=== PATIENT | female | born 1990 | race Caucasian/White ===

== ENCOUNTER 2016-11-28 07:45 | Day surgery (SDC) | payer BC, MEDICAID ==
[2016-11-22 12:36] LABS: HEMATOCRIT 41.7 % (36.0-47.0); HEMOGLOBIN 13.7 g/dL (12.0-15.5); HGB HCT DIFFERENCE -0.6; MEAN CORPUSCULAR HEMOGLOBIN 26.3 pg (27.0-33.4); MEAN CORPUSCULAR HGB CONC 32.8 g/dL (32.0-36.0); MEAN CORPUSCULAR VOLUME 80 fl (80-97); RED BLOOD COUNT 5.21 10^6/uL (3.72-5.28); WHITE BLOOD COUNT 13.3 10^3/uL (4.0-10.5)
[2016-11-22 12:43] LABS: APPEARANCE,URINE CLOUDY; BILIRUBIN,URINE NEGATIVE (NEGATIVE); GLUCOSE, URINE NEGATIVE (NEGATIVE); KETONES,URINE NEGATIVE (NEGATIVE); LEUKOCYTE ESTERASE,URINE MODERATE (NEGATIVE); NITRITE,URINE NEGATIVE (NEGATIVE); PROTEIN,URINE NEGATIVE (NEGATIVE); URINE SPECIFIC GRAVITY 1.024; UROBILINOGEN,URINE NEGATIVE mg/dL (<2.0)
[~2016-11-28 07:45] MED LIST: RINGERS SOLUTION,LACTATED 1,000 ML IV PRN
[2016-11-28] MEDS ORDERED: MIDAZOLAM 2 MG/2 ML INJ ONE (08:19)
[2016-11-28] MEDS ORDERED: PROPOFOL INJ 200 MG/20 ML VIAL IV ONE (08:20)
[2016-11-28] MEDS ORDERED: HYDROMORPHONE HCL INJ/PF 2 MG/ML AMPULE ONE (08:20)
[2016-11-28] MEDS ORDERED: BUPIVACAINE HCL 0.25 % INJ/PF (2.5 MG/1 ML) 30 ML VIAL ONE (08:21)
[2016-11-28] MEDS ORDERED: CEFAZOLIN INJ 1 GM VIAL ONE (08:59)
[2016-11-28] MEDS ORDERED: PROMETHAZINE HCL INJ 25 MG/1 ML VIAL IV PRN ×2 (09:09)
[2016-11-28] MEDS ORDERED: DIPHENHYDRAMINE HCL 50 MG/ML VIAL IV PRN (09:09)
[2016-11-28] MEDS ORDERED: MORPHINE SULFATE 10 MG/ML INJ IV PRN (09:09)
[2016-11-28] MEDS ORDERED: FENTANYL CITRATE INJ/PF 100 MCG/2 ML AMPUL IV PRN ×3 (09:09)
[2016-11-28] MEDS ORDERED: MEPERIDINE HCL/PF INJ 25 MG/1 ML DISP.SYRIN IV PRN (09:09)
[2016-11-28] MEDS ORDERED: OXYCODONE-ACETAMINOPHEN 5-325 MG TABLET PO PRN ×2 (09:09)
[2016-11-28] MEDS: FENTANYL CITRATE INJ/PF 100 MCG/2 ML AMPUL ONE ×2 (09:45→10:00)
[2016-11-28] MEDS: LORAZEPAM INJ 2 MG/1 ML VIAL ONE ×2 (09:50→10:05)
[2016-11-28] MEDS ORDERED: LORAZEPAM INJ 2 MG/1 ML VIAL IV ONE (09:50)
[2016-11-28] MEDS ORDERED: ONDANSETRON HCL INJ/PF 4 MG/2 ML SDV ONE ×2 (11:05→14:11)
[2016-11-28] MEDS ORDERED: IBUPROFEN 800 MG TABLET ONE (13:15)
[2016-11-28] MEDS ORDERED: GLYCOPYRROLATE INJ 0.4 MG/2 ML VIAL ONE (14:11)
[2016-11-28] MEDS ORDERED: DEXAMETHASONE SOD PHOSPHATE INJ 4 MG/1 ML VIAL ONE (14:11)
[2016-11-28] MEDS ORDERED: LIDOCAINE 2% INJ-PF (20 MG/ML) 10 ML AMPUL ONE (14:11)
[2016-11-28] MEDS ORDERED: NEOSTIGMINE METHYLSULFATE 10 MG/10 ML VIAL ONE (14:11)
[2016-11-28 14:57] VITALS: BP 110/65
--- NOTE | 2017-01-07 08:45 | OPERATIVE REPORT E ---
Operative Report NAME: OUSMANE LOBATO : 1990 AGE: 26Y DATE OF SURGERY: 11/28/2016 ROOM: PREOPERATIVE DIAGNOSES: 1. Patient desiring sterilization. 2. Patient desiring her Nexplanon to be removed. POSTOPERATIVE DIAGNOSES: 1. Patient desiring sterilization. 2. Patient desiring her Nexplanon to be removed. PROCEDURE: 1. Laparoscopic bilateral partial salpingectomy. 2. Attempted removal of Nexplanon. SURGEON: Petar Rodríguez D.O. AUDIO INSTALLER: None. ANESTHESIA: General endotracheal anesthesia. COMPLICATIONS: None. PATHOLOGY: None. ESTIMATED BLOOD LOSS: Less than 25 mL. FINDINGS: 1. Normal pelvic anatomy. 2. Nexplanon in left upper arm to a depth of approximately 2 cm via fluoroscopy. PROCEDURE: Patient was taken to the operating room where she was placed in the dorsal supine position upon the operating table. She was then administered her general endotracheal anesthesia. Once this was done, she was placed in dorsal lithotomy position with Zane stirrups. She was then prepped and draped in normal sterile fashion. An open-sided speculum was then placed inside the patient's vagina. The cervix was easily visualized and grasped on the anterior lip with a single-toothed tenaculum. The uterus was then sounded to 7 cm. The uterine manipulator was then placed to this depth without difficulty. Single-toothed tenaculum and open-sided speculum were then removed from the patient's vagina. The surgeon then changed gloves. A 5 mm incision was made at the base of the patient's umbilicus where a 5 mm direct Optiview scope was passed through this incision in the peritoneal cavity. Once inside the peritoneal cavity, CO2 gas was turned on and opening pressures were noted less than 5. Patient's abdomen was then allowed to fill with CO2 gas. Two 5 mm ports were then placed in the left lower quadrant with direct visualization without evidence of trauma or injury. Using the LigaSure device, a bilateral salpingectomy was performed with excellent hemostasis. The tubal portions were pulled through the port and removed in their entirety. Following this, CO2 gas was removed from the patient's abdomen. Pressures were taken down to less than 5 and there was excellent hemostasis at the pedicle sites. At this point in time, all ports, instruments, and gas were removed from the patient's abdomen. The skin incisions were then closed with Dermabond. Attention was then turned to the left upper arm where the Nexplanon had been inserted by another physician. It was unable to be palpated, so fluoroscopy came in and was located using fluoroscopic guidance and found to be approximately 2 cm deep. This is too deep for my comfort and so the patient will be referred to General Surgery for removal. At this point in time the procedure was terminated. All sponge, lap, and needle counts were correct x2. Patient tolerated the procedure well. Patient was taken to the recovery room in stable condition. DICTATING PHYSICIAN: Petar Rodríguez DO [id number] PHY#: [id number] ID: [id number] JOB#: [id number] ACCT: [id number] cc:Petar Rodríguez D.O. >
== END 2016-11-28 14:15 | disposition home or self-care (01) ==
LOC: OROUT 07:45 → EDSTATUS 11:15 → OROUT 14:15
PROVIDERS: ATTEND Obstetrics & Gynecology
PROC: 0UT74ZZ Resection of Bilateral Fallopian Tubes, Percutaneous Endoscopic Approach (ICD-10-PCS; 2016-11-28)
PROC: 0JPV0HZ Removal of Contraceptive Device from Upper Extremity Subcutaneous Tissue and Fascia, Open Approach (ICD-10-PCS; principal; 2016-11-28 09:45)
DX: Z30.2 Encounter for sterilization (principal); F17.210 Nicotine dependence, cigarettes, uncomplicated; E66.9 Obesity, unspecified; Z68.42 Body mass index [BMI] 45.0-49.9, adult; Z88.1 Allergy status to other antibiotic agents; Z30.49 Encounter for surveillance of other contraceptives
CPT/HCPCS: 11982; 58661; 36415; 85027; 81005; 81025; 88302 ×2; J2250; J0690; J1100; J3010; J1170; J2060; J2405; J2704; J3490; 840

== ENCOUNTER → 2016-12-17 | Outpatient (CLI) | payer BC, MEDICAID ==
--- NOTE | 2016-12-17 14:41 | RADIOLOGY REPORT (SQ) ---
EXAM DESCRIPTION: HUMERUS LEFT COMPLETED DATE/TIME: 12/17/2016 2:31 pm REASON FOR STUDY: LOOK FOR CONTROL IMPLANT. SUPERFICIAL FOREIGN BODY OF LEFT UPPER ARM, S40.85 2A SUPERFICIAL FOREIGN BODY OF LEFT UPPER ARM, INIT EN COMPARISON: None. NUMBER OF VIEWS: Two views. TECHNIQUE: Two radiographic images were acquired of the left humerus to include elbow and shoulder i n at least one projection. LIMITATIONS: None. FINDINGS: MINERALIZATION: Normal. BONES: No acute fracture or dislocation. No worrisome bone lesions. SOFT TISSUES: No obvious swelling or foreign body. OTHER: There are 2 linear foreign bodies within the [id number] at the level of the mid humerus. IMPRESSION: 2 linear foreign bodies are visible. TECHNICAL DOCUMENTATION: JOB ID: [id number] [employer]- All Rights Reserved
== END ==
LOC: RAD 13:57
PROVIDERS: ATTEND Surgery
DX: S40.852A Superficial foreign body of left upper arm, initial encounter (principal); X58.XXXA Exposure to other specified factors, initial encounter

== ENCOUNTER → 2016-12-23 | Outpatient (CLI) | payer BC, MEDICAID | LOC: WI 13:49 | PROVIDERS: ATTEND Internal Medicine | DX: N64.9 Disorder of breast, unspecified (principal) ==

== ENCOUNTER 2017-01-07 14:50 | Day surgery (SDC) | payer BC, MEDICAID ==
[~2017-01-07 14:50] MED LIST changes: +CEFAZOLIN 1 GM/D5W RTU 1 GM/50 ML RTUPB IV PRN; +LACTATED RINGERS 1000 ML IV PRN; +LIDOCAINE 0.5% INJ-PF (5 MG/ML) 50 ML SDV SUBCUT PRN; +LIDOCAINE 2% INJ-PF (20 MG/ML) 10 ML AMPUL ONE; -RINGERS SOLUTION,LACTATED 1,000 ML IV PRN
[2017-01-07] MEDS ORDERED: PROPOFOL INJ 200 MG/20 ML VIAL IV ONE ×2 (18:45→19:26)
[2017-01-07] MEDS ORDERED: MIDAZOLAM 2 MG/2 ML INJ ONE (18:45)
[2017-01-07] MEDS ORDERED: FENTANYL CITRATE INJ/PF 100 MCG/2 ML AMPUL ONE (18:45)
[2017-01-07] MEDS ORDERED: BUPIVACAINE HCL 0.25 % INJ/PF (2.5 MG/1 ML) 30 ML VIAL ONE (18:54)
[2017-01-07] MEDS ORDERED: KETAMINE HCL INJ 500 MG/10 ML VIAL ONE (19:05)
[2017-01-07] MEDS ORDERED: BUPIVACAINE HCL 0.25 % INJ/PF (2.5 MG/1 ML) 30 ML VIAL INJ ONE (19:39)
[2017-01-07] MEDS ORDERED: PROMETHAZINE HCL INJ 25 MG/1 ML VIAL IV PRN (19:42)
[2017-01-07] MEDS ORDERED: DIPHENHYDRAMINE HCL 50 MG/ML VIAL IV PRN (19:42)
[2017-01-07] MEDS ORDERED: FENTANYL CITRATE INJ/PF 100 MCG/2 ML AMPUL IV PRN ×2 (19:42)
[2017-01-07] MEDS ORDERED: RINGERS SOLUTION,LACTATED 1,000 ML IV PRN (19:56)
[2017-01-07] MEDS ORDERED: OXYCODONE-ACETAMINOPHEN 5-325 MG TABLET PO PRN (19:56)
[2017-01-07] MEDS ORDERED: ONDANSETRON HCL INJ/PF 4 MG/2 ML SDV IV PRN (19:56)
--- NOTE | 2017-01-07 19:56 | PDOC DISCHARGE SUMMARY ---
Discharge Summary (SDC) - Discharge Final Diagnosis: Retained foreign body in the left upper arm Date of Surgery: 01/07/17 Discharge Date: 01/07/17 Condition: Good Treatment or Instructions: Underwent fluoroscopically guided foreign body removal from the left upper arm. May discharge patient home when met discharge criteria. Follow-up with me in 2-3 weeks. Stay active but avoid strenuous activity. May shower in 2 days. Keep Steri-Strips on. Prescriptions: Oxycodone HCl/Acetaminophen [Percocet 5-325 mg Tablet] 1 - 2 tab PO ASDIR PRN # 15 tablet PRN Reason: Referrals: SATISH NOBLES MD [Primary Care Provider] - Discharge Diet: As Tolerated Discharge Activity: Activity As Tolerated - Stay active but avoid strenuous activity. Keep Steri-Strips on. May shower in 2 days. Report the Following to Your Physician Immediately: Fever over 101 Degrees, Unusual Bleeding, Redness, Drainage-Foul Smelling
--- NOTE | 2017-01-07 19:56 | Operative Report ---
Operative Report DATE OF SURGERY: 01/07/17 PREOPERATIVE DIAGNOSIS: Retained foreign body in the left upper arm POSTOPERATIVE DIAGNOSIS: Retained foreign body in the left upper arm OPERATION: Foreign body removal from the left upper arm under fluoroscopic guidance SURGEON: ARRON MILES ANESTHESIA: LMAC TISSUE REMOVED OR ALTERED: control device removed from the left upper arm COMPLICATIONS: None ESTIMATED BLOOD LOSS: Minimal INTRAOPERATIVE FINDINGS: Tubular linear device located in the left upper arm consistent with control device. Device in the subcutaneous fat. PROCEDURE: Informed consent was obtained. Patient was brought to the operating room. She was placed on the operating room table in the supine position. Procedure was done under LMAC. Her left upper arm was prepped and draped in usual sterile fashion. Fluoroscopy was performed it demonstrated a linear foreign body in the left upper arm at the medial location. Local anesthetic was injected. Using fluoroscopy as a guide a longitudinally oriented incision was made. Dissection was carried down into the subcutaneous fat where the linear tubular foreign body was identified it was removed intact. Hemostasis appeared excellent. Fluoroscopy after foreign body removal demonstrated in the that the radiopaque foreign body was removed. The wound was closed with running subcuticular Monocryl suture.
--- NOTE | 2017-01-07 20:05 | RADIOLOGY REPORT (SQ) ---
EXAM DESCRIPTION: HUMERUS LEFT COMPLETED DATE/TIME: 01/07/2017 7:54 pm REASON FOR STUDY: FB REMOVAL S40.852A SUPERFICIAL FOREIGN BODY OF LEFT UPPER ARM, INIT EN COMPARISON: 12/17/2016 FLUOROSCOPY TIME: 0.5 minutes Spot images saved to PACS. TECHNIQUE: Intra-operative images acquired during surgical procedure to evaluate progress. NUMBER OF IMAGES: 2 LIMITATIONS: None. FINDINGS: Fluoroscopy was provided for intraoperative procedure. Please refer to the operative repo rt for further discussion pair IMPRESSION: IMAGE(S) OBTAINED DURING PROCEDURE. COMMENT: Quality ID [id number]: Final reports for procedures using fluoroscopy that document radiation exp osure indices, or exposure time and number of fluorographic images (if radiation exposure indices are not available) Please consult full operative report of the attending physician for description of the procedure. TECHNICAL DOCUMENTATION: JOB ID: [id number] [email or web address]- All Rights Reserved
--- NOTE | 2017-01-07 20:06 | RADIOLOGY REPORT (SQ) ---
EXAM DESCRIPTION: NO CHG FLUORO COMPLETE DATE/TIME: 01/07/2017 7:54 pm REASON FOR STUDY: FB REMOVAL S40.852A SUPERFICIAL FOREIGN BODY OF LEFT UPPER ARM, INIT EN FINDINGS: Please see combined report for performance of procedure and radiologic supervision and int erpretation. IMPRESSION: Please see combined report for performance of procedure and radiologic supervision and i nterpretation.
[2017-01-07 21:03] VITALS: BP 134/89
== END 2017-01-07 21:46 | disposition home or self-care (01) ==
LOC: OROUT 14:50 → 2N 14:50 → OROUT 21:46
PROVIDERS: ATTEND Surgery
PROC: 0JPV0HZ Removal of Contraceptive Device from Upper Extremity Subcutaneous Tissue and Fascia, Open Approach (ICD-10-PCS; principal; 2017-01-07 17:00)
DX: S40.852A Superficial foreign body of left upper arm, initial encounter (principal); X58.XXXA Exposure to other specified factors, initial encounter; F17.210 Nicotine dependence, cigarettes, uncomplicated; Z68.42 Body mass index [BMI] 45.0-49.9, adult; E66.9 Obesity, unspecified; Z30.49 Encounter for surveillance of other contraceptives; Z88.1 Allergy status to other antibiotic agents
CPT/HCPCS: 81025; 88300 ×2; 73060; 11982; J2250; J0690; J3010; J3490 ×2; J2704; 00400

== ENCOUNTER 2017-04-29 19:27 | Emergency (ER) | payer BC, MEDICAID ==
--- NOTE | 2017-04-29 19:58 | ER Document Report ---
ED Medical Screen (RME) - General Chief Complaint: Fall Stated Complaint: FALL/RIGHT LEG PAIN Time Seen by Provider: 04/29/17 19:56 Notes: misstepped in the dark injuring right lower leg. Hx right ankle fx, last fx two months ago. c/o pain, and unable to bear weight on ankle. I have greeted and performed a rapid initial assessment of this patient. A comprehensive ED assessment and evaluation of the patient, analysis of test results and completion of the medical decision making process will be conducted by additional ED providers. TRAVEL OUTSIDE OF THE [place] IN LAST 30 DAYS: No - Related Data Allergies/Adverse Reactions: levofloxacin [From Levaquin] Allergy (Severe, Verified 04/29/17 14:44) severe psychosis cat dander Allergy (Unknown, Verified 04/29/17 14:44) cinnamon Allergy (Verified 04/29/17 14:44) Swelling of tongue nickel Allergy (Verified 04/29/17 14:44) Generalized rash Past Medical History - Past Medical History Cardiac Medical History: Denies: Hx Coronary Artery Disease, Hx Heart Attack, Hx Hypertension, Hx Pulmonary Embolism Pulmonary Medical History: Reports: Hx Bronchitis - YEARLY , Hx Pneumonia - WALKING Denies: Hx Asthma, Hx COPD, Hx Sleep Apnea, Hx Tuberculosis Neurological Medical History: Denies: Hx Cerebrovascular Accident, Hx Seizures Renal/ Medical History: Reports: Hx Kidney Stones - DURING , Hx Ovarian Cysts. Denies: Hx Pelvic Inflammatory Disease Malignancy Medical History: Denies: Hx Breast Cancer, Hx Cervical Cancer, Hx Ovarian Cancer Musculoskeltal Medical History: Reports Hx Arthritis - NECK Psychiatric Medical History: Denies: Hx Bipolar Disorder, Hx Depression, Hx Post Traumatic Stress Disorder , Hx Schizophrenia Traumatic Medical History: Reports: Hx Fractures - MULTIPLE BONE FX, CRUSHED VERTEBRAE IN NECK Infectious Medical History: Denies: Hx HIV Past Surgical History: Reports: Hx Section, Hx Tonsillectomy - Immunizations Hx Diphtheria, Pertussis, Tetanus Vaccination: Yes - unsure History of Influenza Vaccine for 02/2017 - 07/2017 Season: No
[2017-04-29] MEDS ORDERED: ACETAMINOPHEN 325 MG TABLET PO ONE (19:59)
--- NOTE | 2017-04-29 20:26 | RADIOLOGY REPORT (SQ) ---
EXAM DESCRIPTION: ANKLE RIGHT COMPLETE COMPLETED DATE/TIME: 04/29/2017 8:14 pm REASON FOR STUDY: injury COMPARISON: 09/25/2012. NUMBER OF VIEWS: Three views. TECHNIQUE: AP, lateral, and oblique radiographic images acquired of the right ankle. LIMITATIONS: None. FINDINGS: MINERALIZATION: Normal. BONES: No acute fracture or dislocation. No worrisome bone lesions. JOINTS: No effusions. SOFT TISSUES: No soft tissue swelling. No foreign body. OTHER: No other significant finding. IMPRESSION: NEGATIVE STUDY OF THE RIGHT ANKLE. NO RADIOGRAPHIC EVIDENCE OF ACUTE INJURY. TECHNICAL DOCUMENTATION: JOB ID: [id number] [employer]- All Rights Reserved
--- NOTE | 2017-04-29 22:38 | ER Document Report ---
ED Fall - General Chief Complaint: Fall Stated Complaint: FALL/RIGHT LEG PAIN Time Seen by Provider: 04/29/17 19:56 Mode of Arrival: Wheelchair Information source: Patient, Emergency Med Personnel, [facility] Records Notes: Patient is a 26-year-old morbidly obese white female comes emergency room complaining of a trip and fall at home. Patient states that she cut her feet tangled up and as she was coming down or going up steps and as she did she fell forward landing on her right johnson. Patient had difficulty moving her foot at the onset of the injury and EMS was called with a put her in a immobilized lower extremity and brought her to ER. Patient's been waiting here for quite some time waiting for x-rays to come back. She denies any other known injuries. TRAVEL OUTSIDE OF THE [place] IN LAST 30 DAYS: No - HPI Patient complains to provider of: Right johnson pain Occurred: Just prior to arrival Where: Home Context: Tripped Associated symptoms: denies: None, Lost consciousness, Dazed/confused, Seizure, Difficulty breathing, Difficulty walking, Became dizzy/fainted, Blood in stool, Other Location of injury/pain: Lower extremity Quality of pain: Sharp, Throbbing Severity: Moderate Pain Level: 3 Prehospital interventions: Other - Prefab lower posterior splint right side - Related data Allergies/Adverse Reactions: levofloxacin [From Levaquin] Allergy (Severe, Verified 04/29/17 14:44) severe psychosis cat dander Allergy (Unknown, Verified 04/29/17 14:44) cinnamon Allergy (Verified 04/29/17 14:44) Swelling of tongue nickel Allergy (Verified 04/29/17 14:44) Generalized rash Past Medical History - General Information source: Patient, Relative - Social History Smoking Status: Current Some Day Smoker Cigarette use (# per day): Yes - 1 pack a day Chew tobacco use (# tins/day): No Smoking Education Provided: Yes Frequency of alcohol use: None Drug Abuse: None Family History: Reviewed & Not Pertinent Patient has suicidal ideation: No Patient has homicidal ideation: No - Past Medical History Cardiac Medical History: Denies: Hx Coronary Artery Disease, Hx Heart Attack, Hx Hypertension, Hx Pulmonary Embolism Pulmonary Medical History: Reports: Hx Bronchitis - YEARLY , Hx Pneumonia - WALKING Denies: Hx Asthma, Hx COPD, Hx Sleep Apnea, Hx Tuberculosis Neurological Medical History: Denies: Hx Cerebrovascular Accident, Hx Seizures Renal/ Medical History: Reports: Hx Kidney Stones - DURING , Hx Ovarian Cysts. Denies: Hx Peritoneal Dialysis, Hx Pelvic Inflammatory Disease Malignancy Medical History: Denies: Hx Breast Cancer, Hx Cervical Cancer, Hx Ovarian Cancer Musculoskeltal Medical History: Reports Hx Arthritis - NECK Psychiatric Medical History: Denies: Hx Bipolar Disorder, Hx Depression, Hx Post Traumatic Stress Disorder , Hx Schizophrenia Traumatic Medical History: Reports: Hx Fractures - MULTIPLE BONE FX, CRUSHED VERTEBRAE IN NECK Infectious Medical History: Denies: Hx HIV Past Surgical History: Reports: Hx Section, Hx Tonsillectomy - Immunizations Hx Diphtheria, Pertussis, Tetanus Vaccination: Yes - unsure Hx Pneumococcal Vaccination: 01/18/13 Review of Systems - Review of Systems Constitutional: No symptoms reported EENT: No symptoms reported Cardiovascular: No symptoms reported Respiratory: No symptoms reported Gastrointestinal: No symptoms reported Genitourinary: No symptoms reported Female Genitourinary: No symptoms reported Musculoskeletal: Muscle pain, Leg swelling Skin: Other - Abrasion to right lower anterior leg Hematologic/Lymphatic: No symptoms reported Neurological/Psychological: No symptoms reported -: Yes All other systems reviewed and negative Physical Exam - HEENT Head: Normocephalic, Atraumatic - Respiratory Respiratory status: No respiratory distress Chest status: Nontender Breath sounds: Normal - Cardiovascular Heart sounds: Normal auscultation Murmur: No - Extremities General upper extremity: Normal inspection, Normal ROM Calf: Tender, Other - Examination patient's injury shows it to be around the distal tib-fib anteriorly. On lower leg. There is a abrasion this probably about 8 cm cross where she landed kneeling down on the step. There is just broken skin but there is no blood. Mild discoloration minimal ecchymosis noted. There is moderate amount of tenderness to palpation throughout that entire area but patient has full range of motion of her ankle and foot on the right side. Also examination of the knee shows it to be normal in appearance full range of motion with flexion extension good popliteal pulse besides that. She also has good dorsalis pedal pulses bilaterally. Course - Diagnostic Test Radiology reviewed: Reports reviewed - X-ray report on the right lower extremity shows no acute findings. Specifically no fractures. - Transfer of Care Notes: 04/29/17 22:39 Examination shows patient just have a abrasion contusion to her right lower extremity. I am going to Clement wrap and prior crutches for stability sake. Little pain medication ice to the area and discussed all this with patient and she is want to follow the plan for treating the gingerly for a couple of days. She will return to ER if she has a concerns or problems. Procedures - Immobilization Right Leg Immobilizer type: Clement wrap Performed by: mower sharpener - Discharge Clinical Impression: Contusion, lower leg Qualifiers: Encounter type: initial encounter Laterality: right Qualified Code(s): S80.11XA - Contusion of right lower leg, initial encounter Condition: Good Disposition: HOME, SELF-CARE Instructions: Contusion ([facility]) Additional Instructions: Use the clement wrap around her leg for comfort only. Do not sleep with the Clement wrap in place take it off. Apply it only when you are going to be ambulatory. Use the crutches for 2-3 days for minimal weight bearing. Ice to the area 3 times a day. Medications prescribed ibuprofen will help with discomfort and pain. Should he have increasing pain or discomfort return to ER for recheck. As I informed you the area will turn black and blue over a course of days and this will also by gravity going to the foot and possibly toes this is a normal process. Prescriptions: Tramadol HCl 50 mg PO TID PRN #20 tablet PRN Reason: Forms: Elevated Blood Pressure, Smoking Cessation Education Referrals: GERTRUDE RIVERA MD [Primary Care Provider] - Follow up as needed
[2017-04-29] MEDS ORDERED: HYDROCODONE/ACETAMINOPHEN 5-325 MG TABLET PO ONE (22:43)
[2017-04-29 22:45] VITALS: BP 129/89
== END 2017-04-29 23:00 | disposition home or self-care (01) ==
LOC: ER 19:27
DX: S80.11XA Contusion of right lower leg, initial encounter (principal); M79.604 Pain in right leg; W18.30XA Fall on same level, unspecified, initial encounter; Y92.009 Unspecified place in unspecified non-institutional (private) residence as the place of occurrence of the external cause; F17.210 Nicotine dependence, cigarettes, uncomplicated
CPT/HCPCS: 99283

== ENCOUNTER 2017-05-09 06:42 | Day surgery (SDC) | payer BC, MEDICAID ==
[2017-05-09] MEDS ORDERED: PROPOFOL INJ 200 MG/20 ML VIAL IV ONE (09:43)
[2017-05-09] MEDS ORDERED: DIPHENHYDRAMINE HCL 50 MG/ML VIAL IV PRN (10:01)
[2017-05-09] MEDS ORDERED: ONDANSETRON HCL INJ/PF 4 MG/2 ML SDV IV PRN (10:01)
[2017-05-09 10:57] VITALS: BP 130/82
--- NOTE | 2017-05-09 12:42 | Operative Report ---
Operative Report DATE OF SURGERY: 05/09/17 Operative Report: The risks, benefits and alternatives of the procedure including risks of bleeding, perforation requiring surgery are explained to the patient in detail and informed consent is obtained. Patient was taken back to the operating room and placed in the left, lateral decubital position. Timeout was called. Propofol medications administered. A rectal examination is done which did not reveal any masses, tears or fissures. An Olympus videoscope was inserted into the patient's rectum. The scope was then carefully advanced all the way to the cecum. The cecum was identified by the usual anatomical landmarks including the ileocecal valve as well as the appendiceal office. Photodocumentation is obtained. No granulomatous disease is noted in the colon. The scope was then sequentially pulled back via the rest segments of the colon including the ascending colon, hepatic flexure, transverse colon, splenic flexure, descending colon finding the rectosigmoid portions of the colon. Retroflexion maneuvers performed. The risks benefits and alternatives of the procedure explained to the patient in detail and informed consent is obtained.A GIF Olympus video scope was inserted into the patient's mouth and hypopharynx, the esophagus is identified intubated and insufflated, the scope was then advanced through the esophagus stomach and duodenum, retroflexion maneuver is done, the esophagus stomach and first and second portions of the duodenum examined PREOPERATIVE DIAGNOSIS: Change in bowel habits. Nausea and vomiting POSTOPERATIVE DIAGNOSIS: Gastritis status post biopsy rule out Helicobacter pylori. Mild right-sided colon inflammation status post biopsy rule out microscopic colitis. Internal hemorrhoids OPERATION: Colonoscopy with biopsy. EGD with biopsy SURGEON: JIGAR GUTIÉRREZ ANESTHESIA: LMAC TISSUE REMOVED OR ALTERED: As noted above. COMPLICATIONS: None. ESTIMATED BLOOD LOSS: None. INTRAOPERATIVE FINDINGS: As noted above. PROCEDURE: Patient tolerated the procedure well. No immediate postprocedure complications are noted. Patient discharged in good condition. Discharge date 05/09/2017. Discharge diet: Regular. Discharge activity: Regular. 2-3 week follow-up to discuss findings. Patient is instructed to call the office in a proceed to the emergency room should there be any further problems or questions. We will wait on pathology.
== END 2017-05-09 11:09 | disposition home or self-care (01) ==
LOC: OROUT 06:42
PROVIDERS: ATTEND Internal Medicine Gastroenterology
PROC: 0DB68ZX Excision of Stomach, Via Natural or Artificial Opening Endoscopic, Diagnostic (ICD-10-PCS; principal; 2017-05-09 08:30)
PROC: 0DBF8ZX Excision of Right Large Intestine, Via Natural or Artificial Opening Endoscopic, Diagnostic (ICD-10-PCS; 2017-05-09 08:30)
DX: K31.9 Disease of stomach and duodenum, unspecified (principal); K52.9 Noninfective gastroenteritis and colitis, unspecified; F17.210 Nicotine dependence, cigarettes, uncomplicated; K64.8 Other hemorrhoids
CPT/HCPCS: 43239; 45380; 81025; 88342 ×2; 88305 ×2; J2704; 810

== ENCOUNTER 2017-06-04 08:39 | Day surgery (SDC) | payer BC, MEDICAID ==
[2017-05-26 11:31] LABS: APPEARANCE,URINE CLOUDY; BILIRUBIN,URINE NEGATIVE (NEGATIVE); COLOR,URINE YELLOW; GLUCOSE, URINE NEGATIVE (NEGATIVE); KETONES,URINE NEGATIVE (NEGATIVE); LEUKOCYTE ESTERASE,URINE NEGATIVE (NEGATIVE); NITRITE,URINE NEGATIVE (NEGATIVE); PROTEIN,URINE NEGATIVE (NEGATIVE); URINE SPECIFIC GRAVITY 1.024; UROBILINOGEN,URINE NEGATIVE mg/dL (<2.0)
[2017-05-26 11:45] LABS: HEMATOCRIT 40.8 % (36.0-47.0); HEMOGLOBIN 13.5 g/dL (12.0-15.5); MEAN CORPUSCULAR HEMOGLOBIN 26.2 pg (27.0-33.4); MEAN CORPUSCULAR VOLUME 79 fl (80-97); PLATELET COUNT 299 10^3/uL (150-450); RED BLOOD COUNT 5.13 10^6/uL (3.72-5.28)
[2017-05-26 13:03] LABS: ANION GAP 13 (5-19); BLOOD UREA NITROGEN 11 mg/dL (7-20); CALCIUM 9.8 mg/dL (8.4-10.2); CARBON DIOXIDE 27 mmol/L (22-30); CHLORIDE 101 mmol/L (98-107); GLUCOSE 92 mg/dL (75-110); POTASSIUM 4.2 mmol/L (3.6-5.0); SODIUM 141.1 mmol/L (137-145)
[~2017-06-04 08:39] MED LIST changes: -CEFAZOLIN 1 GM/D5W RTU 1 GM/50 ML RTUPB IV PRN; -LIDOCAINE 2% INJ-PF (20 MG/ML) 10 ML AMPUL ONE
[2017-06-04] MEDS ORDERED: FENTANYL CITRATE INJ/PF 100 MCG/2 ML AMPUL ONE (09:51)
[2017-06-04] MEDS ORDERED: MIDAZOLAM 2 MG/2 ML INJ ONE (09:51)
[2017-06-04] MEDS ORDERED: PROPOFOL INJ 200 MG/20 ML VIAL IV ONE (09:52)
--- NOTE | 2017-06-04 10:33 | Operative Report ---
Operative Report DATE OF SURGERY: 06/04/17 PREOPERATIVE DIAGNOSIS: Heavy menses POSTOPERATIVE DIAGNOSIS: Same OPERATION: D&C hysteroscopy NovaSure ablation SURGEON: FANNY WAYNE ANESTHESIA: GA TISSUE REMOVED OR ALTERED: Uterine lining COMPLICATIONS: None ESTIMATED BLOOD LOSS: 10 cc INTRAOPERATIVE FINDINGS: Uterine cavity is 5 cm in length 4 1/2 cm in width PROCEDURE: Patient was taken the OR and placed in supine position. General anesthesia was induced. She is placed in dorsolithotomy position using Zane stirrups. Her perineum and vagina were prepared and draped in sterile fashion. Her bladder was drained with a red rubber catheter. A weighted speculum was placed in the anterior lip cervix grasped with a tenaculum. The uterus was sounded to 7 cm before and after the case. The cervix was gently dilated hysteroscopy was performed and showed a empty uterine cavity. Endometrial curettings were obtained. NovaSure device was placed tested and fired without difficulty. At the end of the case all instruments were removed. The uterine cavity showed good ablation and sounded to 7 cm at the end of the case. She is extubated in the OR and taken recovery in stable condition
[2017-06-04] MEDS ORDERED: LORAZEPAM INJ 2 MG/1 ML VIAL ONE (10:38)
[2017-06-04] MEDS ORDERED: PROMETHAZINE HCL INJ 25 MG/1 ML VIAL IV PRN ×2 (10:43)
[2017-06-04] MEDS ORDERED: MORPHINE SULFATE 10 MG/ML INJ IV PRN (10:43)
[2017-06-04] MEDS ORDERED: OXYCODONE-ACETAMINOPHEN 5-325 MG TABLET PO PRN ×4 (10:43→12:31)
[2017-06-04] MEDS ORDERED: FENTANYL CITRATE INJ/PF 100 MCG/2 ML AMPUL IV PRN ×3 (10:43)
[2017-06-04] MEDS ORDERED: MEPERIDINE HCL/PF INJ 25 MG/1 ML DISP.SYRIN IV PRN (10:43)
[2017-06-04] MEDS ORDERED: DIPHENHYDRAMINE HCL 50 MG/ML VIAL IV PRN (10:43)
[2017-06-04] MEDS ORDERED: LORAZEPAM INJ 2 MG/1 ML VIAL IV ONE (10:44)
[2017-06-04] MEDS ORDERED: DEXAMETHASONE SOD PHOSPHATE INJ 4 MG/1 ML VIAL ONE (10:49)
[2017-06-04] MEDS ORDERED: KETOROLAC TROMETHAMINE INJ/PF 30 MG/1 ML SDV ONE (10:49)
[2017-06-04] MEDS ORDERED: ONDANSETRON HCL INJ/PF 4 MG/2 ML SDV ONE (10:49)
[2017-06-04] MEDS ORDERED: ACETAMINOPHEN 100 ML IV ONE (11:07)
[2017-06-04] MEDS ORDERED: OXYCODONE-ACETAMINOPHEN 5-325 MG TABLET ONE (11:36)
[2017-06-04] MEDS ORDERED: IBUPROFEN 800 MG TABLET PO PRN (12:30)
[2017-06-04 13:53] VITALS: BP 160/88
[2017-06-04] MEDS ORDERED: SUCCINYLCHOLINE CHLORIDE INJ 200 MG/10 ML VIAL ONE (14:41)
== END 2017-06-04 13:20 | disposition home or self-care (01) ==
LOC: OROUT 08:39
PROVIDERS: ATTEND Obstetrics & Gynecology
PROC: 0U5B8ZZ Destruction of Endometrium, Via Natural or Artificial Opening Endoscopic (ICD-10-PCS; principal; 2017-06-04 10:30)
DX: N92.1 Excessive and frequent menstruation with irregular cycle (principal); F17.210 Nicotine dependence, cigarettes, uncomplicated; E66.9 Obesity, unspecified; Z68.42 Body mass index [BMI] 45.0-49.9, adult
CPT/HCPCS: 36415; 85027; 81005; 81025; 80048; 88305 ×2; 58563; J2250; J1100; J3010; J1885; J2060; J0330; J2405; J2704; J0131; 952

== ENCOUNTER → 2017-06-09 | Outpatient (CLI) | payer BC, MEDICAID ==
--- NOTE | 2017-06-09 16:12 | RADIOLOGY REPORT (SQ) ---
EXAM DESCRIPTION: U/S ABDOMEN COMPLETE W/DOPPLER COMPLETED DATE/TIME: 06/09/2017 11:43 am REASON FOR STUDY: RUQ PAIN R10.11 RIGHT UPPER QUADRANT PAIN COMPARISON: CT abdomen pelvis 10/24/2015 TECHNIQUE: Dynamic and static grayscale images acquired of the abdomen and recorded on PACS. Additio nal selected color Doppler and spectral images recorded. LIMITATIONS: Large patient, upper abdominal bowel gas FINDINGS: PANCREAS: Not well seen LIVER: Normal size. Difficult to penetrate with the ultrasound energy from fatty infiltration LIVER VASCULATURE: Normal directional flow of the main portal vein and hepatic veins. GALLBLADDER: No stones. Normal wall thickness. No pericholecystic fluid. ULTRASOUND-DETECTED GOMEZ'S SIGN: Negative. INTRAHEPATIC DUCTS AND COMMON DUCT: CBD and intrahepatic ducts normal caliber. No filling defects. D istal common duct not well seen INFERIOR VENA CAVA: Normal flow. AORTA: Not well seen RIGHT KIDNEY: Normal size. Normal echogenicity. No solid or suspicious masses. No hydronephros is. No calcifications. LEFT KIDNEY: Normal size. Normal echogenicity. No solid or suspicious masses. No hydronephrosi s. No calcifications. SPLEEN: Normal size. No solid masses. PERITONEAL AND PLEURAL SPACES: No ascites or effusions. OTHER: No other significant finding. IMPRESSION: Large patient, fatty liver, no gallstones. TECHNICAL DOCUMENTATION: JOB ID: [id number]- All Rights Reserved
== END ==
LOC: RAD 10:41
PROVIDERS: ATTEND Internal Medicine Gastroenterology
DX: R10.11 Right upper quadrant pain (principal); K76.0 Fatty (change of) liver, not elsewhere classified
CPT/HCPCS: 76700; 93976

== ENCOUNTER → 2018-05-25 | Outpatient (CLI) | payer BC, MEDICAID ==
--- NOTE | 2018-05-25 14:28 | WOMENS IMAGING REPORT ---
EXAM DESCRIPTION: U/S BREAST UNILATERAL, COMPL COMPLETED DATE/TIME: 05/25/2018 1:55 pm REASON FOR STUDY: N64.3 GALACTORRHEA LEFT; N64.3 GALACTORRHEA RIGHT N64.3 GALACTORRHEA NOT ASSOCIAT ED WITH CHILDBIRTH COMPARISON: None. TECHNIQUE: Real-time and static grayscale imaging performed of the entire right and left breast. Kayla ected color Doppler images recorded. LIMITATIONS: None. FINDINGS: MASS: No mass identified. Normal glandular tissue. OTHER: No other significant finding. No right or left breast dilated retroareolar ducts. No retroar eolar cysts or masses. IMPRESSION: No suspicious findings detected by ultrasound. BIRAD: 1 Negative. RECOMMENDATION: RECOMMENDED FOLLOW-UP: Follow-up as clinically indicated. COMMENT: The [employer] (ACR) has developed recommendations for screening MRI of the breasts in certain patient populations, to be used in conjunction with mammography. Breast MRI s urveillance may be appropriate for women with more than 20% lifetime risk of developing breast cancer as determined by genetic testing, significant family history of the disease, or history of mantle r adiation for Hodgkins Disease. ACR Practice Guidelines 2008. TECHNICAL DOCUMENTATION: JOB ID: [id number] [email or web address]- All Rights Reserved Reading location - IP/workstation name: [email or web address]
--- NOTE | 2018-05-25 14:28 | WOMENS IMAGING REPORT ---
EXAM DESCRIPTION: U/S BREAST UNILATERAL, COMPL COMPLETED DATE/TIME: 05/25/2018 1:55 pm REASON FOR STUDY: N64.3 GALACTORRHEA LEFT; N64.3 GALACTORRHEA RIGHT N64.3 GALACTORRHEA NOT ASSOCIAT ED WITH CHILDBIRTH COMPARISON: None. TECHNIQUE: Real-time and static grayscale imaging performed of the entire right and left breast. Kayla ected color Doppler images recorded. LIMITATIONS: None. FINDINGS: MASS: No mass identified. Normal glandular tissue. OTHER: No other significant finding. No right or left breast dilated retroareolar ducts. No retroar eolar cysts or masses. IMPRESSION: No suspicious findings detected by ultrasound. BIRAD: 1 Negative. RECOMMENDATION: RECOMMENDED FOLLOW-UP: Follow-up as clinically indicated. COMMENT: The [employer] ([employer]) has developed recommendations for screening MRI of the breasts in certain patient populations, to be used in conjunction with mammography. Breast MRI s urveillance may be appropriate for women with more than 20% lifetime risk of developing breast cancer as determined by genetic testing, significant family history of the disease, or history of mantle r adiation for Hodgkins Disease. ACR Practice Guidelines 2008. TECHNICAL DOCUMENTATION: JOB ID: [id number] [employer]- All Rights Reserved Reading location - IP/workstation name: [email or web address]
== END ==
LOC: WI 13:07
PROVIDERS: ATTEND Nurse Practitioner Family
DX: N64.3 Galactorrhea not associated with childbirth (principal)
CPT/HCPCS: 76641

== ENCOUNTER → 2018-06-24 | Day surgery (SDC) | payer BC, MEDICAID ==
[~2018-06-24] MED LIST changes: -LACTATED RINGERS 1000 ML IV PRN; -LIDOCAINE 0.5% INJ-PF (5 MG/ML) 50 ML SDV SUBCUT PRN; +LIDOCAINE 1%/EPINEPHRINE INJ 20 ML VIAL ONE
--- NOTE | 2018-06-26 15:36 | RADIOLOGY REPORT (SQ) ---
EXAM DESCRIPTION: STEREO BREAST BX; LEFT DIG DX MAMMO NO CHG COMPLETED DATE/TIME: 06/26/2018 12:19 pm; 06/24/2018 12:20 pm REASON FOR STUDY: R92.0 MAMMOGRAPHIC MICROCALCIFICATION FOUND ON DIAGNOSTIC IMAGING OF BREAST; POST STEREO R92.0 MAMMOGRAPHIC MICROCALCIFICATION FOUND ON DX IMAGING OF COMPARISON: Outside mammograms and breast ultrasound Bilateral breast ultrasound 05/25/2018 TECHNIQUE: Vacuum-assisted stereotactic-guided biopsy of the lesion in the left breast. Serial progr ess stereotactic and single digital images acquired. PROCEDURE: The procedure was discussed with the patient, including possible complications such as bleeding, infection, nondiagnostic sample or possible findings such as atypical ductal hyperplasia wh ich would require additional surgery. Marker clip placement was explained. The patient agreed to the procedure. The patient was placed prone on the stereotactic table. The lesion in the breast was localized ster eotactically. The skin of the breast was prepped in sterile fashion. Superficial and deep local an esthesia was provided. A small incision was made in the skin and the biopsy probe was advanced to t he target. Using the vacuum-assisted core biopsy device, multiple core specimens were obtained. Continuous low dose infusion of local anesthesia was used during the procedure. A specimen radiograph was obtained. The radiograph demonstrated calcifications of concern in the bio psy tissue. Using [id number] technique a pellet clip was deployed at the biopsy site. Mammographic image confirmed presence of the clip. The probe was then removed and hemostasis obtained with manua l compression. A compression bandage was applied. Postoperative instructions were explained to th e patient. POST-PROCEDURE TWO VIEW DIGITAL MAMMOGRAM: An additional two view mammogram was recorded in the [facility] mammographic suite. Marker clip is present at the biopsy site. LIMITATIONS: None. FINDINGS: PATHOLOGY: Fibroadenoma 0, duct ectasia and benign microcalcifications. Negative for atyp ia or malignancy CONCORDANT: Yes. POST PROCEDURE MAMMOGRAMS FOR MARKER PLACEMENT: Yes IMPRESSION: SUCCESSFUL STEREOTACTIC-GUIDED BIOPSY OF THE LESION IN THE LEFT BREAST. BIOPSY RESULTS ARE CONCORDANT WITH IMAGING FINDINGS. Benign microcalcifications BI-RADS 2, benign findings FOLLOW-UP: As per Dr. Washington NOTIFICATION: Results of the biopsy were discussed with the patient, 1345 hours 06/26/2018. She unders tands this is a benign diagnosis. COMMENT: Patient medication list reviewed: Yes- Quality ID# [id number]:Eligible professional attests to doc umenting in the medical record they obtained, updated, or reviewed the patient's current medications. TECHNICAL DOCUMENTATION: JOB ID: [id number] [employer]- All Rights Reserved Reading location - IP/workstation name: [email or web address]
== END ==
LOC: RAD 10:20
PROVIDERS: ATTEND Surgery
DX: R92.0 Mammographic microcalcification found on diagnostic imaging of breast (principal)
CPT/HCPCS: 88305 ×2; 88342; 19081; J3490

== ENCOUNTER → 2019-10-26 | Outpatient (CLI) | payer MEDICAID ==
--- NOTE | 2019-10-26 15:46 | RADIOLOGY REPORT (SQ) ---
EXAM DESCRIPTION: ANKLE LEFT COMPLETE IMAGES COMPLETED DATE/TIME: 10/26/2019 3:18 pm REASON FOR STUDY: PAIN IN LEFT ANKLE AND JOINTS OF LEFT FOOT M25.572 PAIN IN LEFT ANKLE AND JOINTS OF LEFT FOOT COMPARISON: None. NUMBER OF VIEWS: Three views. TECHNIQUE: AP, lateral, and oblique radiographic images acquired of the left ankle. LIMITATIONS: None. FINDINGS: MINERALIZATION: Normal. BONES: No acute fracture or dislocation. No worrisome bone lesions. JOINTS: No effusions. SOFT TISSUES: No soft tissue swelling. No foreign body. OTHER: No other significant finding. IMPRESSION: NEGATIVE STUDY OF THE LEFT ANKLE. NO RADIOGRAPHIC EVIDENCE OF ACUTE INJURY. TECHNICAL DOCUMENTATION: JOB ID: [id number] 2010 [employer]- All Rights Reserved Reading location - IP/workstation name: [email or web address]
== END ==
LOC: OD 13:42
PROVIDERS: ATTEND Internal Medicine
DX: M25.572 Pain in left ankle and joints of left foot (principal)

== ENCOUNTER 2020-05-23 21:36 | Emergency (ER) | payer MEDICAID ==
[2020-05-23 23:05] VITALS: BP 140/82
--- NOTE | 2020-05-23 23:06 | ER Document Report ---
ED Skin Rash/Insect Bite/Abscs - General Chief Complaint: Insect Bite Stated Complaint: SWOLLEN SPIDER BITE,NAUSEOUS,DIZZY Time Seen by Provider: 05/23/20 22:58 Primary Care Provider: SATISH NOBLES MD [Primary Care Provider] - Follow up as needed Mode of Arrival: Ambulatory Information source: Patient TRAVEL OUTSIDE OF THE [place] IN LAST 30 DAYS: No - HPI Patient complains to provider of: Skin rash/lesion, Spider bite Notes: Patient here with complaints of spider bite to the left side of her breast. The patient states that she was vacuuming spider webs from her mom's ceiling when a brown spider fell into her shirt. Later she felt something pinch her she noticed an area on the left side of her breast. She states that it festered became red and swollen and she was able to squeeze pus out of it. This seems to have somewhat improved. She denies fever. She does complain of some mild marshal sea but denies any vomiting or diarrhea. No chest pain or shortness of breath. No difficulty breathing or swallowing. No rashes. No blurred or lost vision. Nothing seems to make symptoms better or worse. She denies any other complaints at this time. - Related Data Allergies/Adverse Reactions: levofloxacin [From Levaquin] Allergy (Severe, Verified 05/23/20 22:58) severe psychosis cat dander Allergy (Unknown, Verified 05/23/20 22:58) acetaminophen [From Percocet] Allergy (Verified 05/23/20 22:58) cinnamon Allergy (Verified 05/23/20 22:58) Swelling of tongue nickel Allergy (Verified 05/23/20 22:58) Generalized rash oxycodone [From Percocet] Allergy (Verified 05/23/20 22:58) Past Medical History - Social History Smoking Status: Never Smoker Frequency of alcohol use: None Drug Abuse: None Family History: Reviewed & Not Pertinent - Past Medical History Cardiac Medical History: Denies: Hx Coronary Artery Disease, Hx Heart Attack, Hx Hypertension, Hx P ulmonary Embolism Pulmonary Medical History: Reports: Hx Bronchitis, Hx Pneumonia - WALKING PHEUMONIA X2 Denies: Hx Asthma, Hx COPD, Hx Sleep Apnea, Hx Tuberculosis Neurological Medical History: Denies: Hx Cerebrovascular Accident, Hx Seizures Renal/ Medical History: Reports: Hx Kidney Stones - DURING , Hx Ovari an Cysts. Denies: Hx Peritoneal Dialysis, Hx Pelvic Inflammatory Disease Malignancy Medical History: Denies: Hx Breast Cancer, Hx Cervical Cancer, Hx Ovarian Cancer Musculoskeletal Medical History: Reports Hx Arthritis - NECK Psychiatric Medical History: Denies: Hx Bipolar Disorder, Hx Depression, Hx Post Traumatic Stress Disorder, Hx Schizophrenia Traumatic Medical History: Reports: Hx Fractures - MULTIPLE BONE FX, CRUSHED VERTEBRAE IN NECK Infectious Medical History: Denies: Hx HIV Past Surgical History: Reports: Hx Section, Hx Tonsillectomy - Immunizations Hx Diphtheria, Pertussis, Tetanus Vaccination: Yes Hx Pneumococcal Vaccination: 02/16/13 Review of Systems - Review of Systems -: Yes All other systems reviewed and negative Physical Exam - Vital signs Vitals: Temp Pulse Resp BP Pulse Ox 98.8 F 104 H 18 146/83 H 100 05/23/20 21:41 05/23/20 21:41 05/23/20 21:41 05/23/20 21:41 05/23/20 21:41 - Notes Notes: GENERAL: alert, cooperative, nontoxic, no distress. HEAD: normocephalic, atraumatic EYES: conjunctiva pink without discharge, no external redness or swelling. EARS: no external swelling, no external redness NOSE: atraumatic, no external swelling MOUTH/THROAT: mucous membranes moist and pink NECK: soft, supple, full range of motion, no meningismus. CHEST: no distress, lungs clear and equal throughout. No wheezing, rales, rhonchi. CARDIAC: regular rate and rhythm, no murmur EXTREMITIES: full range of motion of all extremities. No redness, no swelling. NEURO: alert and oriented 3, no focal deficits, full range of motion of all extremities. PYSCH: appropriate mood, affect. Patient is cooperative. SKIN: pink, warm, dry, no rash. Small open area to the left side of the breast with some minimal tenderness to palpation. No drainable abscess appreciated at this time. No significant surrounding cellulitis. No necrotic lesions. Course - Re-evaluation Re-evalutation: 05/23/20 23:04 Patient is nontoxic-appearing with stable vitals. Here with complaints of a spider bite to the left side of her breast. This occurred a few days ago and she states that it got red swollen and she drained pus out of it. She complained of feeling slightly nauseous. No other symptoms. On exam she is got what appears to be healing spider bite to the left side of her breast. There is no drainable abscess identified at this time. I will place the patient on Bactrim in case there is a deeper infection. She will also be given a prescription for Zofran due to her nausea. She had no vomiting. Her vitals are stable. No signs of systemic illness. Does not appear to be a brown recluse or black bite. Patient overall looks well and can be discharged home. She was instructed apply warm compresses sore. Follow-up if not better in the next 3 to 5 days, sooner for worsening pain, fever, persistent vomiting, spreading redness, or for any further concerns. The patient's emergency department workup and current diagnosis were explained to the patient and or family. Follow-up instructions were provided. Medications if prescribed were discussed. Instructions for when to return to the emergency department including specific worrisome symptoms were discussed with the patient and/or family. - Vital Signs Vital signs: Temp Pulse Resp BP Pulse Ox 98.8 F 104 H 18 146/83 H 100 05/23/20 21:41 05/23/20 21:41 05/23/20 21:41 05/23/20 21:41 05/23/20 21:41 - Laboratory Results Critical Laboratory Results Reviewed: No Critical Results - Radiology Results Critical Radiology Results Reviewed: No Critical Results Discharge - Discharge Clinical Impression: Spider bite Qualifiers: Encounter type: initial encounter Injury intent: accidental or unintentional Qualified Code(s): T63.301A - Toxic effect of unspecified spider venom, accidental (unintentional), initial encounter Condition: Stable Disposition: HOME, SELF-CARE Instructions: Abscess ([facility]) Additional Instructions: Take medication as prescribed. Apply warm compresses sore. Follow-up if not better in the next 3 to 5 days, sooner for worsening pain, fever, redness, numbness, tingling, weakness, any further concerns. Prescriptions: Sulfamethoxazole/Trimethoprim [Bactrim Ds Tablet] 1 each PO BID #20 tablet Ondansetron [Zofran Odt 4 mg Tablet] 1 - 2 tab PO Q4H PRN #15 tab.rapdis PRN Reason: For Nausea/Vomiting Forms: Elevated Blood Pressure Referrals: SATISH NOBLES MD [Primary Care Provider] - Follow up as needed
== END 2020-05-23 23:04 | disposition home or self-care (01) ==
LOC: ER 21:36
DX: T63.301A Toxic effect of unspecified spider venom, accidental (unintentional), initial encounter (principal); R11.0 Nausea; Z88.1 Allergy status to other antibiotic agents; Z91.048 Other nonmedicinal substance allergy status; Z88.8 Allergy status to other drugs, medicaments and biological substances; Z91.018 Allergy to other foods; Z88.6 Allergy status to analgesic agent; Z88.5 Allergy status to narcotic agent
CPT/HCPCS: 99283